=== PATIENT | female | born 1940 | race Caucasian/White ===

== ENCOUNTER 2021-11-03 16:02 | Inpatient (IN) | payer MEDICARE ==
[2021-11-03 17:55] LABS: CKMB 30.1 ng/mL (0-6.6)
[2021-11-03] MEDS ORDERED: Dextrose 50% Abboject 50 ML SYRINGE SLOW IVP PRN (18:01)
[2021-11-03] MEDS ORDERED: Guaifenesin DM 100-10/5 ML UDCUP PO PRN (18:01)
[2021-11-03] MEDS ORDERED: Calcium Carbonate 500 MG ChewTAB PO PRN (18:01)
[2021-11-03] MEDS ORDERED: Morphine 2 MG/ML VIAL SLOW IVP PRN (18:01)
[2021-11-03] MEDS ORDERED: Ondansetron PF 4 MG/2 ML Vial IVP PRN (18:01)
[2021-11-03] MEDS ORDERED: Dextrose 5% in Water 1,000 ML IV PRN (18:01)
[2021-11-03] MEDS ORDERED: Senokot S 8.6-50 MG TAB PO PRN (18:01)
[2021-11-03] MEDS ORDERED: Acetaminophen 325 MG TAB PO PRN (18:01)
[2021-11-03] MEDS ORDERED: Nitroglycerin 0.4 MG TAB (25 Tab Bottle) SL PRN (18:01)
[2021-11-03] MEDS ORDERED: Sodium Chloride 0.9% 1,000 ML IV SCH (18:15)
[2021-11-03] MEDS: Atorvastatin Calcium 40 MG TAB PO SCH (22:06)
[2021-11-03] MEDS: Metoprolol Tartrate 25 MG TAB PO SCH (22:07)
[2021-11-03] MEDS: Melatonin 3 MG TAB PO SCH (22:07)
[2021-11-03] MEDS: Insulin Glargine 30 UNITS/0.3 ML VIAL SC SCH (22:07)
[2021-11-03 22:38] VITALS: BMI 38.1
[2021-11-03] MEDS: Nitroglycerin 2% Ointment 1 INCH/1 GM Packet TOP SCH (23:19)
[2021-11-03] MEDS: Communication Order-Pharmacy FS SCH (23:20)
[2021-11-04 04:31] LABS: #Basophils 0.1 thou/uL (0.0-0.2); #Eosinphils 0.3 thou/uL (0.0-0.7); #Lymphocytes 3.6 thou/uL (1.20-3.40); #Monocytes 1.4 thou/uL (0.11-0.59); #Neutrophils 8.1 thou/uL (1.40-6.50); %Basophils 0.9 % (0.0-1.0); %Lymphocytes 26.7 % (21.0-51.0); %Monocytes 10.3 % (0.0-10.0); %Neutrophils 60.1 % (42.0-75.0); Hemoglobin 13.5 g/dL (12.0-16.0); Mean Corpuscular HGB CONC 33.8 g/dL (32.0-36.0); Mean Corpuscular Hemoglobin 30.4 pg (27.0-31.0); Mean Corpuscular Volume 89.9 fL (78.0-98.0); Mean Platelet Volume 8.8 fL (7.4-10.4); Platelet Count 224 thou/uL (130-400); RBC Distribution Width 12.8 % (11.5-14.5); Red Blood Cell (RBC) Count 4.45 mill/uL (4.20-5.40); White Blood Cell (WBC) Count 13.4 thou/uL (4.8-10.8)
[2021-11-04 04:54] LABS: ALT (SGPT) 22 U/L (8-55); AST (SGOT) 57 U/L (5-34); Albumin 3.1 g/dL (3.4-4.8); Alkaline Phosphatase 49 U/L (40-110); Anion Gap 16 mmol/L (10-20); BUN (Urea Nitrogen) 26 mg/dL (9.8-20.1); Bilirubin, Total 0.6 mg/dL (0.2-1.2); Calc. Creatinine Clearance 68 mL/min (70-130); Carbon Dioxide 21 mmol/L (23-31); Cardiac Risk 4.8 (Less than 4.5); Chloride 106 mmol/L (98-107); Cholesterol 145 mg/dl (< 200 Desired); Estimated GFR 52; Globulin 3.3 g/dL (2.4-3.5); Glucose 170 mg/dL (83-110); HDL Cholesterol 30 mg/dL (>60 Neg Risk); LDL Cholesterol, Calculated 76 mg/dL; Potassium 3.8 mmol/L (3.5-5.1); Protein, Total 6.4 g/dL (5.8-8.1); Sodium 139 mmol/L (136-145); Triglycerides 197 mg/dL (Less than 150)
[2021-11-04] MEDS: Metoprolol Tartrate 25 MG TAB PO SCH ×2 (05:19→21:07)
[2021-11-04] MEDS: Levothyroxine Sodium 25 MCG TAB PO SCH (05:19)
[2021-11-04] MEDS: Nitroglycerin 2% Ointment 1 INCH/1 GM Packet TOP SCH ×3 (06:07→21:17)
[2021-11-04 06:44] LABS: SARS-CoV-2 NAA Rapid Test Not Detected (NotDetected)
[2021-11-04] MEDS: Amlodipine 10 MG TAB PO SCH (07:36)
[2021-11-04] MEDS: Aspirin 325 mg Enteric Coated Tablet PO SCH (07:36)
[2021-11-04] MEDS: Insulin Glargine 30 UNITS/0.3 ML VIAL SC SCH ×2 (07:38→21:06)
[2021-11-04] MEDS: Alogliptin 25 MG TAB PO SCH (07:38)
[2021-11-04] MEDS: Fish Oil 1,000 MG CAP PO SCH (07:38)
[2021-11-04] MEDS ORDERED: Lidocaine 1% PF 5 ML VIAL ONE (07:46)
[2021-11-04] MEDS ORDERED: Midazolam HCl 2 mg/2 ml Vial ONE (08:47)
[2021-11-04] MEDS ORDERED: Fentanyl 100 MCG/2 ML VIAL ONE (08:49)
[2021-11-04] MEDS ORDERED: Losartan 25 MG TAB PO SCH (09:00)
[2021-11-04] MEDS ORDERED: Acetaminophen/Codeine 30-300mg Tablet PO PRN (09:22)
[2021-11-04] MEDS ORDERED: Sodium Chloride 0.9% 200 ML IV PRN (09:22)
[2021-11-04] MEDS ORDERED: Iopamidol 370 76% 100 ML VIAL ONE (09:27)
[2021-11-04] MEDS ORDERED: Sodium Chloride 0.9% 1,000 ML IV SCH (09:30)
[2021-11-04] MEDS ORDERED: Enoxaparin Sodium 100 MG/ML SYRINGE SC SCH (11:00)
[2021-11-04] MEDS: HumaLOG 300 UNITS/3 ML VIAL SC PRN ×3 (11:42→21:17)
[2021-11-04] MEDS ORDERED: hydrALAZINE 20 MG/ML VIAL SLOW IVP SCH (11:45)
[2021-11-04] MEDS: Communication Order-Pharmacy FS SCH (21:01)
[2021-11-04] MEDS: Enoxaparin Sodium 100 MG/ML SYRINGE SC SCH ×2 (21:02→21:27)
[2021-11-04] MEDS: Atorvastatin Calcium 40 MG TAB PO SCH (21:02)
[2021-11-04] MEDS: Melatonin 3 MG TAB PO SCH (21:07)
[2021-11-05 04:56] LABS: Anion Gap 14 mmol/L (10-20); BUN (Urea Nitrogen) 25 mg/dL (9.8-20.1); Calc. Creatinine Clearance 65 mL/min (70-130); Calcium 8.8 mg/dL (7.8-10.44); Carbon Dioxide 22 mmol/L (23-31); Chloride 106 mmol/L (98-107); Estimated GFR 49; Glucose 247 mg/dL (83-110); Potassium 3.6 mmol/L (3.5-5.1); Sodium 138 mmol/L (136-145)
[2021-11-05] MEDS: Nitroglycerin 2% Ointment 1 INCH/1 GM Packet TOP SCH ×3 (05:24→21:35)
[2021-11-05] MEDS: Levothyroxine Sodium 25 MCG TAB PO SCH (05:25)
[2021-11-05] MEDS: HumaLOG 300 UNITS/3 ML VIAL SC PRN ×3 (06:40→16:56)
[2021-11-05] MEDS: Fish Oil 1,000 MG CAP PO SCH (09:13)
[2021-11-05] MEDS: Alogliptin 25 MG TAB PO SCH (09:14)
[2021-11-05] MEDS: Amlodipine 10 MG TAB PO SCH (09:15)
[2021-11-05] MEDS: Metoprolol Tartrate 25 MG TAB PO SCH (09:15)
[2021-11-05] MEDS: Insulin Glargine 30 UNITS/0.3 ML VIAL SC SCH ×2 (09:17→21:35)
[2021-11-05] MEDS: Aspirin 325 mg Enteric Coated Tablet PO SCH (11:05)
[2021-11-05] MEDS: Enoxaparin Sodium 100 MG/ML SYRINGE SC SCH (11:05)
[2021-11-05] MEDS ORDERED: Metoprolol Tartrate 25 MG TAB PO SCH (13:45)
[2021-11-05] MEDS: Sodium Bicarbonate Tab 325 MG TAB PO SCH ×2 (14:01→21:34)
[2021-11-05 14:17] LABS: #Basophils 0.1 thou/uL (0.0-0.2); #Eosinphils 0.3 thou/uL (0.0-0.7); #Lymphocytes 2.6 thou/uL (1.20-3.40); #Monocytes 1.5 thou/uL (0.11-0.59); #Neutrophils 9.4 thou/uL (1.40-6.50); %Basophils 0.4 % (0.0-1.0); %Eosinophils 2.1 % (0.0-10.0); %Lymphocytes 18.8 % (21.0-51.0); %Monocytes 10.9 % (0.0-10.0); %Neutrophils 67.9 % (42.0-75.0); Hemoglobin 13.4 g/dL (12.0-16.0); Mean Corpuscular Hemoglobin 29.9 pg (27.0-31.0); Mean Corpuscular Volume 90.4 fL (78.0-98.0); Mean Platelet Volume 9.2 fL (7.4-10.4); Platelet Count 237 thou/uL (130-400); White Blood Cell (WBC) Count 13.8 thou/uL (4.8-10.8)
[2021-11-05] MEDS: Atorvastatin Calcium 40 MG TAB PO SCH (21:34)
[2021-11-05] MEDS: Metoprolol Tartrate 50 MG TAB PO SCH (21:34)
[2021-11-05] MEDS: Melatonin 3 MG TAB PO SCH (21:34)
[2021-11-06 04:15] LABS: #Basophils 0.1 thou/uL (0.0-0.2); #Eosinphils 0.5 thou/uL (0.0-0.7); #Monocytes 1.5 thou/uL (0.11-0.59); #Neutrophils 6.8 thou/uL (1.40-6.50); %Basophils 0.9 % (0.0-1.0); %Eosinophils 3.9 % (0.0-10.0); %Lymphocytes 25.2 % (21.0-51.0); %Monocytes 12.4 % (0.0-10.0); %Neutrophils 57.6 % (42.0-75.0); Hemoglobin 12.5 g/dL (12.0-16.0); Mean Corpuscular Hemoglobin 30.7 pg (27.0-31.0); Mean Corpuscular Volume 90.2 fL (78.0-98.0); Platelet Count 204 thou/uL (130-400); RBC Distribution Width 12.8 % (11.5-14.5); Red Blood Cell (RBC) Count 4.07 mill/uL (4.20-5.40); White Blood Cell (WBC) Count 11.7 thou/uL (4.8-10.8)
[2021-11-06 04:34] LABS: Anion Gap 15 mmol/L (10-20); BUN (Urea Nitrogen) 38 mg/dL (9.8-20.1); Calc. Creatinine Clearance 48 mL/min (70-130); Calcium 8.6 mg/dL (7.8-10.44); Carbon Dioxide 21 mmol/L (23-31); Chloride 104 mmol/L (98-107); Estimated GFR 34; Glucose 338 mg/dL (83-110); Potassium 3.8 mmol/L (3.5-5.1); Sodium 136 mmol/L (136-145)
[2021-11-06] MEDS: Levothyroxine Sodium 25 MCG TAB PO SCH (05:34)
[2021-11-06] MEDS: Nitroglycerin 2% Ointment 1 INCH/1 GM Packet TOP SCH (05:34)
[2021-11-06] MEDS: HumaLOG 300 UNITS/3 ML VIAL SC PRN ×3 (05:34→17:35)
[2021-11-06] MEDS ORDERED: Sodium Bicarbonate 50 MEQ in Sodium Chloride 0.45% 1,000 ML IV SCH (08:00)
[2021-11-06] MEDS: Sodium Bicarbonate Tab 325 MG TAB PO SCH ×3 (09:21→20:35)
[2021-11-06] MEDS: Amlodipine 10 MG TAB PO SCH (09:22)
[2021-11-06] MEDS: Fish Oil 1,000 MG CAP PO SCH (09:22)
[2021-11-06] MEDS: Alogliptin 25 MG TAB PO SCH (09:22)
[2021-11-06] MEDS: Aspirin 325 mg Enteric Coated Tablet PO SCH (09:22)
[2021-11-06] MEDS: Metoprolol Tartrate 50 MG TAB PO SCH ×2 (09:22→20:35)
[2021-11-06] MEDS: Insulin Glargine 30 UNITS/0.3 ML VIAL SC SCH ×2 (09:23→20:36)
[2021-11-06 15:16] LABS: Bacteria/HPF 4+ HPF (None Seen); Bilirubin Negative (Negative); Blood, Urine 3+ (Negative); Glucose, Urine (Dipstick) 200 mg/dL (Negative); Ketone, Urine Negative (Negative); Leukocyte 500 Leu/uL (Negative); Nitrite Negative (Negative); Protein, Urine (Dipstick) 300 mg/dL (Neg-Trace); RBC/HPF Greater than 50 HPF (0-3); Specific Gravity, Urine 1.021 (1.002-1.036); Squamous Epithelial 0-3 HPF (0-3); Urobilinogen Normal mg/dL (Less than 2); WBC/HPF Greater than 50 HPF (0-3); pH, Urine 6.5 (5.0-9.0)
[2021-11-06 15:28] LABS: Clarity Turbid (Clear)
[2021-11-06 15:45] LABS: Creatinine, Urine 130.4 mg/dL (47-110)
[2021-11-06] MEDS: Melatonin 3 MG TAB PO SCH (20:35)
[2021-11-06] MEDS: Atorvastatin Calcium 40 MG TAB PO SCH (20:35)
[2021-11-07] MEDS: hydrALAZINE 20 MG/ML VIAL SLOW IVP PRN (04:08)
[2021-11-07 04:32] LABS: #Basophils 0.1 thou/uL (0.0-0.2); #Eosinphils 0.7 thou/uL (0.0-0.7); #Lymphocytes 2.7 thou/uL (1.20-3.40); #Monocytes 1.3 thou/uL (0.11-0.59); %Basophils 0.6 % (0.0-1.0); %Eosinophils 5.3 % (0.0-10.0); %Lymphocytes 21.1 % (21.0-51.0); %Monocytes 10.2 % (0.0-10.0); %Neutrophils 62.8 % (42.0-75.0); Hemoglobin 12.8 g/dL (12.0-16.0); Mean Corpuscular HGB CONC 33.8 g/dL (32.0-36.0); Mean Corpuscular Hemoglobin 30.9 pg (27.0-31.0); Mean Corpuscular Volume 91.3 fL (78.0-98.0); Mean Platelet Volume 9.1 fL (7.4-10.4); Platelet Count 224 thou/uL (130-400); RBC Distribution Width 12.7 % (11.5-14.5); Red Blood Cell (RBC) Count 4.15 mill/uL (4.20-5.40); White Blood Cell (WBC) Count 12.8 thou/uL (4.8-10.8)
[2021-11-07 04:56] LABS: Anion Gap 13 mmol/L (10-20); BUN (Urea Nitrogen) 34 mg/dL (9.8-20.1); Calc. Creatinine Clearance 55 mL/min (70-130); Calcium 8.7 mg/dL (7.8-10.44); Carbon Dioxide 25 mmol/L (23-31); Chloride 104 mmol/L (98-107); Estimated GFR 40; Glucose 298 mg/dL (83-110); Magnesium 1.7 mg/dL (1.6-2.6); Sodium 138 mmol/L (136-145)
[2021-11-07] MEDS: HumaLOG 300 UNITS/3 ML VIAL SC PRN (05:33)
[2021-11-07] MEDS: Levothyroxine Sodium 25 MCG TAB PO SCH (05:33)
[2021-11-07] MEDS ORDERED: Furosemide 40 MG/4 ML VIAL SLOW IVP SCH ×2 (06:00→18:30)
[2021-11-07] MEDS: Alogliptin 25 MG TAB PO SCH (09:44)
[2021-11-07] MEDS: Sodium Bicarbonate Tab 325 MG TAB PO SCH ×3 (09:45→21:08)
[2021-11-07] MEDS: Magnesium Oxide 400 MG TAB PO SCH ×2 (09:46→21:08)
[2021-11-07] MEDS: Aspirin 325 mg Enteric Coated Tablet PO SCH ×2 (09:46→09:47)
[2021-11-07] MEDS: Fish Oil 1,000 MG CAP PO SCH (09:46)
[2021-11-07] MEDS: Metoprolol Tartrate 50 MG TAB PO SCH ×2 (09:47→21:08)
[2021-11-07] MEDS: Amlodipine 10 MG TAB PO SCH (09:47)
[2021-11-07] MEDS: Insulin Glargine 30 UNITS/0.3 ML VIAL SC SCH ×2 (09:48→21:07)
[2021-11-07] MEDS: HumaLOG 300 UNITS/3 ML VIAL SC SCH ×2 (11:04→17:37)
[2021-11-07] MEDS ORDERED: Electrolyte Replacement Protocol 1 EACH FS SCH (13:00)
[2021-11-07] MEDS ORDERED: Insulin Glargine 30 UNITS/0.3 ML VIAL SC SCH ×2 (13:00→21:00)
[2021-11-07] MEDS ORDERED: Magnesium 2 GM/50 ML(in water) 2 GM in Premix Bag 1 BAG IVPB SCH (13:30)
[2021-11-07 19:12] LABS: Anion Gap 16 mmol/L (10-20); BUN (Urea Nitrogen) 39 mg/dL (9.8-20.1); Calc. Creatinine Clearance 45 mL/min (70-130); Calcium 8.6 mg/dL (7.8-10.44); Carbon Dioxide 23 mmol/L (23-31); Chloride 101 mmol/L (98-107); Estimated GFR 31; Glucose 426 mg/dL (83-110); Potassium 3.7 mmol/L (3.5-5.1); Sodium 136 mmol/L (136-145)
[2021-11-07 19:44] LABS: CKMB 1.1 ng/mL (0-6.6)
[2021-11-07] MEDS: Atorvastatin Calcium 40 MG TAB PO SCH (21:07)
[2021-11-07] MEDS: Melatonin 3 MG TAB PO SCH (21:08)
[2021-11-07 22:45] LABS: Critical Call Chem Troponin I RESULT DECREASING
[2021-11-08 04:59] LABS: #Basophils 0.1 thou/uL (0.0-0.2); #Eosinphils 0.5 thou/uL (0.0-0.7); #Lymphocytes 2.4 thou/uL (1.20-3.40); #Monocytes 1.2 thou/uL (0.11-0.59); %Basophils 0.6 % (0.0-1.0); %Eosinophils 4.5 % (0.0-10.0); %Lymphocytes 21.2 % (21.0-51.0); %Monocytes 10.8 % (0.0-10.0); %Neutrophils 62.9 % (42.0-75.0); Hemoglobin 11.9 g/dL (12.0-16.0); Mean Corpuscular HGB CONC 34.3 g/dL (32.0-36.0); Mean Corpuscular Hemoglobin 30.9 pg (27.0-31.0); Mean Corpuscular Volume 90.2 fL (78.0-98.0); Mean Platelet Volume 9.2 fL (7.4-10.4); Platelet Count 219 thou/uL (130-400); RBC Distribution Width 12.8 % (11.5-14.5); Red Blood Cell (RBC) Count 3.85 mill/uL (4.20-5.40); White Blood Cell (WBC) Count 11.1 thou/uL (4.8-10.8)
[2021-11-08 05:20] LABS: Anion Gap 16 mmol/L (10-20); BUN (Urea Nitrogen) 33 mg/dL (9.8-20.1); Calc. Creatinine Clearance 61 mL/min (70-130); Calcium 8.7 mg/dL (7.8-10.44); Carbon Dioxide 25 mmol/L (23-31); Chloride 103 mmol/L (98-107); Estimated GFR 45; Glucose 209 mg/dL (83-110); Potassium 3.6 mmol/L (3.5-5.1); Sodium 140 mmol/L (136-145)
[2021-11-08] MEDS: HumaLOG 300 UNITS/3 ML VIAL SC PRN ×2 (05:57→16:10)
[2021-11-08] MEDS: Levothyroxine Sodium 25 MCG TAB PO SCH (05:57)
[2021-11-08] MEDS: hydrALAZINE 20 MG/ML VIAL SLOW IVP PRN (05:57)
[2021-11-08] MEDS: Alogliptin 25 MG TAB PO SCH (08:58)
[2021-11-08] MEDS: Fish Oil 1,000 MG CAP PO SCH (08:59)
[2021-11-08] MEDS: Insulin Glargine 30 UNITS/0.3 ML VIAL SC SCH (09:00)
[2021-11-08] MEDS: Metoprolol Tartrate 50 MG TAB PO SCH ×2 (09:01→21:24)
[2021-11-08] MEDS: NIFEdipine XL 60 MG TAB PO SCH (09:01)
[2021-11-08] MEDS: Magnesium Oxide 400 MG TAB PO SCH ×2 (09:01→21:24)
[2021-11-08] MEDS: Sodium Bicarbonate Tab 325 MG TAB PO SCH ×3 (09:02→21:23)
[2021-11-08] MEDS ORDERED: Furosemide 20 MG TAB PO SCH (09:15)
[2021-11-08] MEDS: Budesonide 0.5 MG/2 ML NEB NEB SCH (19:24)
[2021-11-08] MEDS ORDERED: Insulin Glargine 30 UNITS/0.3 ML VIAL SC SCH (21:00)
[2021-11-08] MEDS: Atorvastatin Calcium 40 MG TAB PO SCH (21:23)
[2021-11-08] MEDS: Melatonin 3 MG TAB PO SCH (21:24)
[2021-11-09 04:39] LABS: #Basophils 0.1 thou/uL (0.0-0.2); #Eosinphils 0.6 thou/uL (0.0-0.7); #Lymphocytes 2.6 thou/uL (1.20-3.40); #Monocytes 1.3 thou/uL (0.11-0.59); #Neutrophils 6.8 thou/uL (1.40-6.50); %Basophils 0.8 % (0.0-1.0); %Monocytes 11.5 % (0.0-10.0); %Neutrophils 59.7 % (42.0-75.0); Hemoglobin 11.8 g/dL (12.0-16.0); Mean Corpuscular HGB CONC 32.7 g/dL (32.0-36.0); Mean Corpuscular Volume 91.7 fL (78.0-98.0); Mean Platelet Volume 9.1 fL (7.4-10.4); Platelet Count 259 thou/uL (130-400); RBC Distribution Width 12.7 % (11.5-14.5); Red Blood Cell (RBC) Count 3.95 mill/uL (4.20-5.40); White Blood Cell (WBC) Count 11.3 thou/uL (4.8-10.8)
[2021-11-09 05:03] LABS: Anion Gap 15 mmol/L (10-20); BUN (Urea Nitrogen) 39 mg/dL (9.8-20.1); Calc. Creatinine Clearance 60 mL/min (70-130); Calcium 8.8 mg/dL (7.8-10.44); Carbon Dioxide 28 mmol/L (23-31); Chloride 104 mmol/L (98-107); Estimated GFR 47; Glucose 110 mg/dL (83-110); Magnesium 1.9 mg/dL (1.6-2.6); Potassium 3.5 mmol/L (3.5-5.1); Sodium 143 mmol/L (136-145)
[2021-11-09] MEDS: Levothyroxine Sodium 25 MCG TAB PO SCH (05:28)
[2021-11-09] MEDS: Budesonide 0.5 MG/2 ML NEB NEB SCH ×2 (07:38→19:17)
[2021-11-09] MEDS ORDERED: Magnesium 2 GM/50 ML(in water) 2 GM in Premix Bag 1 BAG IVPB SCH (08:00)
[2021-11-09] MEDS ORDERED: Potassium Chloride 20 MEQ TAB PO SCH (08:00)
[2021-11-09] MEDS ORDERED: Furosemide 40 MG TAB PO SCH (09:00)
[2021-11-09] MEDS: Alogliptin 25 MG TAB PO SCH (09:17)
[2021-11-09] MEDS: NIFEdipine XL 60 MG TAB PO SCH (09:20)
[2021-11-09] MEDS: Furosemide 20 MG TAB PO SCH (09:21)
[2021-11-09] MEDS: Metoprolol Tartrate 50 MG TAB PO SCH ×2 (09:21→21:43)
[2021-11-09] MEDS: Aspirin 325 mg Enteric Coated Tablet PO SCH (09:21)
[2021-11-09] MEDS: Sodium Bicarbonate Tab 325 MG TAB PO SCH ×2 (09:21→21:42)
[2021-11-09] MEDS: Fish Oil 1,000 MG CAP PO SCH (09:22)
[2021-11-09] MEDS: Magnesium Oxide 400 MG TAB PO SCH ×2 (09:22→21:43)
[2021-11-09] MEDS: Spironolactone 25 MG TAB PO SCH (09:22)
[2021-11-09] MEDS: Insulin Glargine 30 UNITS/0.3 ML VIAL SC SCH ×2 (09:23→21:43)
[2021-11-09] MEDS: HumaLOG 300 UNITS/3 ML VIAL SC PRN (11:51)
[2021-11-09] MEDS: Atorvastatin Calcium 40 MG TAB PO SCH (21:43)
[2021-11-09] MEDS: Melatonin 3 MG TAB PO SCH (21:43)
[2021-11-10 04:18] LABS: #Eosinphils 0.5 thou/uL (0.0-0.7); #Lymphocytes 2.2 thou/uL (1.20-3.40); #Monocytes 1.1 thou/uL (0.11-0.59); #Neutrophils 7.7 thou/uL (1.40-6.50); %Basophils 0.4 % (0.0-1.0); %Eosinophils 4.5 % (0.0-10.0); %Lymphocytes 19.1 % (21.0-51.0); %Monocytes 9.3 % (0.0-10.0); %Neutrophils 66.7 % (42.0-75.0); Hemoglobin 11.9 g/dL (12.0-16.0); Mean Corpuscular HGB CONC 32.6 g/dL (32.0-36.0); Mean Corpuscular Hemoglobin 29.9 pg (27.0-31.0); Mean Corpuscular Volume 91.7 fL (78.0-98.0); Mean Platelet Volume 8.5 fL (7.4-10.4); Platelet Count 262 thou/uL (130-400); RBC Distribution Width 12.9 % (11.5-14.5); Red Blood Cell (RBC) Count 3.97 mill/uL (4.20-5.40); White Blood Cell (WBC) Count 11.6 thou/uL (4.8-10.8)
[2021-11-10 04:38] LABS: Anion Gap 14 mmol/L (10-20); BUN (Urea Nitrogen) 39 mg/dL (9.8-20.1); Calc. Creatinine Clearance 63 mL/min (70-130); Carbon Dioxide 26 mmol/L (23-31); Chloride 107 mmol/L (98-107); Estimated GFR 48; Glucose 69 mg/dL (83-110); Potassium 3.9 mmol/L (3.5-5.1); Sodium 143 mmol/L (136-145)
[2021-11-10] MEDS: Budesonide 0.5 MG/2 ML NEB NEB SCH ×2 (05:33→19:08)
[2021-11-10] MEDS: Levothyroxine Sodium 25 MCG TAB PO SCH (06:10)
[2021-11-10] MEDS: Alogliptin 25 MG TAB PO SCH (09:36)
[2021-11-10] MEDS: Spironolactone 25 MG TAB PO SCH (09:38)
[2021-11-10] MEDS: NIFEdipine XL 90 MG TAB PO SCH (09:38)
[2021-11-10] MEDS: Sodium Bicarbonate Tab 325 MG TAB PO SCH ×2 (09:38→21:07)
[2021-11-10] MEDS ORDERED: Aspirin Chewable 81 MG TAB ONE (09:41)
[2021-11-10] MEDS: Aspirin 325 mg Enteric Coated Tablet PO SCH (09:43)
[2021-11-10] MEDS: Furosemide 20 MG TAB PO SCH (09:44)
[2021-11-10] MEDS: Magnesium Oxide 400 MG TAB PO SCH ×2 (09:44→21:08)
[2021-11-10] MEDS: Clopidogrel Bisulfate 75 MG TAB PO SCH (09:44)
[2021-11-10] MEDS: Fish Oil 1,000 MG CAP PO SCH (09:44)
[2021-11-10] MEDS: Insulin Glargine 30 UNITS/0.3 ML VIAL SC SCH (09:44)
[2021-11-10] MEDS: Metoprolol Tartrate 50 MG TAB PO SCH ×2 (09:44→21:08)
[2021-11-10] MEDS ORDERED: Insulin Glargine 30 UNITS/0.3 ML VIAL SC SCH (21:00)
[2021-11-10] MEDS: Atorvastatin Calcium 40 MG TAB PO SCH (21:07)
[2021-11-10] MEDS: Melatonin 3 MG TAB PO SCH (21:07)
[2021-11-11 04:57] LABS: #Basophils 0.1 thou/uL (0.0-0.2); #Eosinphils 0.6 thou/uL (0.0-0.7); #Lymphocytes 1.9 thou/uL (1.20-3.40); #Monocytes 1.1 thou/uL (0.11-0.59); #Neutrophils 7.9 thou/uL (1.40-6.50); %Basophils 0.6 % (0.0-1.0); %Eosinophils 4.9 % (0.0-10.0); %Lymphocytes 16.8 % (21.0-51.0); %Monocytes 9.4 % (0.0-10.0); %Neutrophils 68.1 % (42.0-75.0); Hemoglobin 11.9 g/dL (12.0-16.0); Mean Corpuscular HGB CONC 32.5 g/dL (32.0-36.0); Mean Corpuscular Volume 92.3 fL (78.0-98.0); Mean Platelet Volume 8.9 fL (7.4-10.4); Platelet Count 286 thou/uL (130-400); Red Blood Cell (RBC) Count 3.96 mill/uL (4.20-5.40); White Blood Cell (WBC) Count 11.5 thou/uL (4.8-10.8)
[2021-11-11 05:08] LABS: Anion Gap 16 mmol/L (10-20); BUN (Urea Nitrogen) 35 mg/dL (9.8-20.1); Calc. Creatinine Clearance 62 mL/min (70-130); Calcium 9.3 mg/dL (7.8-10.44); Carbon Dioxide 26 mmol/L (23-31); Chloride 105 mmol/L (98-107); Estimated GFR 47; Glucose 137 mg/dL (83-110); Sodium 143 mmol/L (136-145)
[2021-11-11] MEDS: Levothyroxine Sodium 25 MCG TAB PO SCH (05:54)
[2021-11-11] MEDS: Budesonide 0.5 MG/2 ML NEB NEB SCH ×2 (07:23→18:41)
[2021-11-11] MEDS ORDERED: Furosemide 40 MG TAB PO SCH (07:30)
[2021-11-11] MEDS ORDERED: Lisinopril 2.5 MG TAB PO SCH (09:00)
[2021-11-11 09:20] LABS: Actual Bicarbonate (HCO3a) 28.5 mEq/L (22-28); Base Excess (BEa) 4.5 mEq/L (-2.0 to +3.0); CO2 Tension 40.5 mmHg (35.0-45.0); Calcium, Ionized (arterial) 1.21 mmol/L (1.12-1.30); Carboxyhemoglobin (COHb) 0.5 gm% (0.0-3.0); Hemoglobin (Hb) 13.6 g/dL (12.0-16.0); O2 Tension (PaO2), arterial 69.3 mmHg (> 60.0); Potassium - ABG Lab 4.17 mmol/L (3.70-5.30); pH, Arterial 7.47 (7.35-7.45)
[2021-11-11 09:22] LABS: ALV-art Gradient 108.235 mmHg (0-20); Puncture Site RRA
[2021-11-11] MEDS: Spironolactone 25 MG TAB PO SCH (10:20)
[2021-11-11] MEDS: Alogliptin 25 MG TAB PO SCH (10:20)
[2021-11-11] MEDS: Clopidogrel Bisulfate 75 MG TAB PO SCH (10:20)
[2021-11-11] MEDS: Fish Oil 1,000 MG CAP PO SCH (10:20)
[2021-11-11] MEDS: Aspirin 325 mg Enteric Coated Tablet PO SCH (10:20)
[2021-11-11] MEDS: Insulin Glargine 30 UNITS/0.3 ML VIAL SC SCH ×2 (10:20→20:51)
[2021-11-11] MEDS: Metoprolol Tartrate 50 MG TAB PO SCH ×2 (10:21→20:50)
[2021-11-11] MEDS: Sodium Bicarbonate Tab 325 MG TAB PO SCH ×2 (10:21→20:50)
[2021-11-11] MEDS: NIFEdipine XL 90 MG TAB PO SCH (10:21)
[2021-11-11] MEDS: Magnesium Oxide 400 MG TAB PO SCH ×2 (10:21→20:50)
[2021-11-11] MEDS: Furosemide 40 MG/4 ML VIAL SLOW IVP SCH (14:02)
[2021-11-11] MEDS: HumaLOG 300 UNITS/3 ML VIAL SC PRN (18:57)
[2021-11-11] MEDS: Atorvastatin Calcium 40 MG TAB PO SCH (20:50)
[2021-11-11] MEDS: Melatonin 3 MG TAB PO SCH (20:50)
[2021-11-11] MEDS: Icosapent Ethyl 1 GM CAPSULE PO SCH (20:57)
[2021-11-12 05:12] LABS: Anion Gap 14 mmol/L (10-20); BUN (Urea Nitrogen) 34 mg/dL (9.8-20.1); Calc. Creatinine Clearance 66 mL/min (70-130); Calcium 9.2 mg/dL (7.8-10.44); Carbon Dioxide 28 mmol/L (23-31); Chloride 103 mmol/L (98-107); Estimated GFR 51; Glucose 78 mg/dL (83-110); Sodium 141 mmol/L (136-145)
[2021-11-12] MEDS: Levothyroxine Sodium 25 MCG TAB PO SCH (06:07)
[2021-11-12] MEDS: Furosemide 40 MG/4 ML VIAL SLOW IVP SCH ×2 (06:07→15:13)
[2021-11-12] MEDS: Budesonide 0.5 MG/2 ML NEB NEB SCH ×2 (07:07→18:44)
[2021-11-12] MEDS: Sodium Bicarbonate Tab 325 MG TAB PO SCH ×2 (09:20→20:21)
[2021-11-12] MEDS: NIFEdipine XL 90 MG TAB PO SCH (09:20)
[2021-11-12] MEDS: Spironolactone 25 MG TAB PO SCH (09:21)
[2021-11-12] MEDS: Alogliptin 25 MG TAB PO SCH (09:22)
[2021-11-12] MEDS: Lisinopril 10 MG TAB PO SCH (09:22)
[2021-11-12] MEDS: Clopidogrel Bisulfate 75 MG TAB PO SCH (09:22)
[2021-11-12] MEDS: Metoprolol Tartrate 50 MG TAB PO SCH ×2 (09:23→20:21)
[2021-11-12] MEDS: Magnesium Oxide 400 MG TAB PO SCH ×2 (09:23→20:21)
[2021-11-12] MEDS: Icosapent Ethyl 1 GM CAPSULE PO SCH ×2 (09:33→20:25)
[2021-11-12] MEDS: Empagliflozin 10 MG TAB PO SCH (09:34)
[2021-11-12] MEDS: Insulin Glargine 30 UNITS/0.3 ML VIAL SC SCH ×2 (09:34→20:20)
[2021-11-12] MEDS: Aspirin 81 mg Enteric Coated Tablet PO SCH (10:11)
[2021-11-12] MEDS: Aspirin 325 mg Enteric Coated Tablet PO SCH (10:19)
[2021-11-12] MEDS: HumaLOG 300 UNITS/3 ML VIAL SC PRN ×2 (17:25→22:29)
[2021-11-12] MEDS: Melatonin 3 MG TAB PO SCH (20:21)
[2021-11-12] MEDS: Atorvastatin Calcium 40 MG TAB PO SCH (20:21)
[2021-11-13 05:15] LABS: #Basophils 0.1 thou/uL (0.0-0.2); #Eosinphils 0.6 thou/uL (0.0-0.7); #Lymphocytes 3.2 thou/uL (1.20-3.40); #Monocytes 1.1 thou/uL (0.11-0.59); #Neutrophils 7.8 thou/uL (1.40-6.50); %Basophils 0.5 % (0.0-1.0); %Eosinophils 4.9 % (0.0-10.0); %Lymphocytes 24.7 % (21.0-51.0); %Monocytes 8.6 % (0.0-10.0); %Neutrophils 61.2 % (42.0-75.0); Hemoglobin 12.9 g/dL (12.0-16.0); Mean Corpuscular HGB CONC 33.5 g/dL (32.0-36.0); Mean Corpuscular Hemoglobin 30.5 pg (27.0-31.0); Mean Corpuscular Volume 91.1 fL (78.0-98.0); Mean Platelet Volume 8.2 fL (7.4-10.4); Platelet Count 321 thou/uL (130-400); RBC Distribution Width 12.7 % (11.5-14.5); Red Blood Cell (RBC) Count 4.24 mill/uL (4.20-5.40); White Blood Cell (WBC) Count 12.7 thou/uL (4.8-10.8)
[2021-11-13 05:32] LABS: ALT (SGPT) 16 U/L (8-55); AST (SGOT) 16 U/L (5-34); Alkaline Phosphatase 52 U/L (40-110); Anion Gap 17 mmol/L (10-20); BUN (Urea Nitrogen) 34 mg/dL (9.8-20.1); Bilirubin, Total 0.5 mg/dL (0.2-1.2); Calc. Creatinine Clearance 57 mL/min (70-130); Calcium 9.5 mg/dL (7.8-10.44); Carbon Dioxide 29 mmol/L (23-31); Chloride 100 mmol/L (98-107); Estimated GFR 43; Globulin 3.4 g/dL (2.4-3.5); Glucose 90 mg/dL (83-110); Potassium 4.1 mmol/L (3.5-5.1); Protein, Total 6.4 g/dL (5.8-8.1); Sodium 142 mmol/L (136-145)
[2021-11-13] MEDS: Levothyroxine Sodium 25 MCG TAB PO SCH (05:53)
[2021-11-13] MEDS: Furosemide 40 MG/4 ML VIAL SLOW IVP SCH ×2 (05:54→14:45)
[2021-11-13] MEDS: Budesonide 0.5 MG/2 ML NEB NEB SCH ×2 (06:58→18:42)
[2021-11-13] MEDS: Spironolactone 25 MG TAB PO SCH (09:55)
[2021-11-13] MEDS: Magnesium Oxide 400 MG TAB PO SCH ×2 (09:56→20:58)
[2021-11-13] MEDS: Lisinopril 10 MG TAB PO SCH (09:56)
[2021-11-13] MEDS: Sodium Bicarbonate Tab 325 MG TAB PO SCH ×2 (09:56→21:06)
[2021-11-13] MEDS: Aspirin 81 mg Enteric Coated Tablet PO SCH (09:56)
[2021-11-13] MEDS: Clopidogrel Bisulfate 75 MG TAB PO SCH (09:56)
[2021-11-13] MEDS: NIFEdipine XL 90 MG TAB PO SCH (09:56)
[2021-11-13] MEDS: Empagliflozin 10 MG TAB PO SCH (09:56)
[2021-11-13] MEDS: Metoprolol Tartrate 50 MG TAB PO SCH ×2 (09:57→20:58)
[2021-11-13] MEDS: Icosapent Ethyl 1 GM CAPSULE PO SCH ×2 (09:57→20:57)
[2021-11-13] MEDS: Insulin Glargine 30 UNITS/0.3 ML VIAL SC SCH ×2 (09:57→20:58)
[2021-11-13] MEDS: Alogliptin 25 MG TAB PO SCH (10:54)
[2021-11-13] MEDS: HumaLOG 300 UNITS/3 ML VIAL SC PRN (17:25)
[2021-11-13] MEDS: Atorvastatin Calcium 40 MG TAB PO SCH (20:57)
[2021-11-13] MEDS: Melatonin 3 MG TAB PO SCH (20:58)
[2021-11-14 04:31] LABS: Anion Gap 18 mmol/L (10-20); BUN (Urea Nitrogen) 43 mg/dL (9.8-20.1); Calc. Creatinine Clearance 41 mL/min (70-130); Calcium 9.3 mg/dL (7.8-10.44); Carbon Dioxide 30 mmol/L (23-31); Chloride 97 mmol/L (98-107); Estimated GFR 29; Glucose 80 mg/dL (83-110); Potassium 3.7 mmol/L (3.5-5.1); Sodium 141 mmol/L (136-145)
[2021-11-14] MEDS: Levothyroxine Sodium 25 MCG TAB PO SCH (06:07)
[2021-11-14] MEDS: Furosemide 40 MG/4 ML VIAL SLOW IVP SCH (06:07)
[2021-11-14] MEDS: Budesonide 0.5 MG/2 ML NEB NEB SCH ×2 (07:16→19:11)
[2021-11-14] MEDS: Alogliptin 25 MG TAB PO SCH (09:48)
[2021-11-14] MEDS: Icosapent Ethyl 1 GM CAPSULE PO SCH ×2 (09:49→21:33)
[2021-11-14] MEDS: Insulin Glargine 30 UNITS/0.3 ML VIAL SC SCH ×2 (09:49→21:33)
[2021-11-14] MEDS: Metoprolol Tartrate 50 MG TAB PO SCH ×2 (09:50→21:32)
[2021-11-14] MEDS: Spironolactone 25 MG TAB PO SCH (09:50)
[2021-11-14] MEDS: Sodium Bicarbonate Tab 325 MG TAB PO SCH ×2 (09:51→21:33)
[2021-11-14] MEDS: Clopidogrel Bisulfate 75 MG TAB PO SCH (09:51)
[2021-11-14] MEDS: Magnesium Oxide 400 MG TAB PO SCH ×2 (09:51→21:33)
[2021-11-14] MEDS: Empagliflozin 10 MG TAB PO SCH (09:51)
[2021-11-14] MEDS: Aspirin 81 mg Enteric Coated Tablet PO SCH (09:51)
[2021-11-14] MEDS: NIFEdipine XL 60 MG TAB PO SCH (09:52)
[2021-11-14] MEDS: HumaLOG 300 UNITS/3 ML VIAL SC PRN ×2 (11:40→17:56)
[2021-11-14] MEDS ORDERED: Sodium Chloride 0.9% 250 ML IV SCH (17:45)
[2021-11-14] MEDS: Senokot S 8.6-50 MG TAB PO SCH (21:32)
[2021-11-14] MEDS: Melatonin 3 MG TAB PO SCH (21:33)
[2021-11-14] MEDS: Atorvastatin Calcium 40 MG TAB PO SCH (21:33)
[2021-11-15 05:13] LABS: Anion Gap 16 mmol/L (10-20); BUN (Urea Nitrogen) 46 mg/dL (9.8-20.1); Calc. Creatinine Clearance 37 mL/min (70-130); Calcium 9.5 mg/dL (7.8-10.44); Carbon Dioxide 30 mmol/L (23-31); Chloride 95 mmol/L (98-107); Estimated GFR 28; Glucose 101 mg/dL (83-110); Magnesium 2.1 mg/dL (1.6-2.6); Potassium 3.8 mmol/L (3.5-5.1); Sodium 137 mmol/L (136-145)
[2021-11-15] MEDS: Levothyroxine Sodium 25 MCG TAB PO SCH (05:20)
[2021-11-15] MEDS: Budesonide 0.5 MG/2 ML NEB NEB SCH ×2 (05:36→18:46)
[2021-11-15] MEDS: Spironolactone 25 MG TAB PO SCH (08:54)
[2021-11-15] MEDS: Metoprolol Tartrate 50 MG TAB PO SCH ×2 (08:55→20:54)
[2021-11-15] MEDS: Clopidogrel Bisulfate 75 MG TAB PO SCH (08:58)
[2021-11-15] MEDS: Sodium Bicarbonate Tab 325 MG TAB PO SCH ×2 (08:58→20:52)
[2021-11-15] MEDS: Aspirin 81 mg Enteric Coated Tablet PO SCH (08:58)
[2021-11-15] MEDS: Senokot S 8.6-50 MG TAB PO SCH ×2 (08:58→20:53)
[2021-11-15] MEDS: NIFEdipine XL 60 MG TAB PO SCH (08:59)
[2021-11-15] MEDS: Empagliflozin 10 MG TAB PO SCH (08:59)
[2021-11-15] MEDS: Icosapent Ethyl 1 GM CAPSULE PO SCH ×2 (08:59→20:56)
[2021-11-15] MEDS: Alogliptin 25 MG TAB PO SCH (08:59)
[2021-11-15] MEDS: Insulin Glargine 30 UNITS/0.3 ML VIAL SC SCH ×2 (09:00→20:54)
[2021-11-15] MEDS: Magnesium Oxide 400 MG TAB PO SCH ×2 (09:07→20:53)
[2021-11-15] MEDS: HumaLOG 300 UNITS/3 ML VIAL SC PRN (12:08)
[2021-11-15] MEDS ORDERED: Sodium Chloride 0.9% 500 ML IV SCH (12:30)
[2021-11-15] MEDS ORDERED: Heparin 5,000 UNITS/ML VIAL SC SCH ×2 (13:15→21:00)
[2021-11-15] MEDS: Melatonin 3 MG TAB PO SCH (20:52)
[2021-11-15] MEDS: Folic Acid 1 MG TAB PO SCH (20:53)
[2021-11-15] MEDS: Cyanocobalamin (Vitamin B-12) 1,000 MCG TAB PO SCH (20:53)
[2021-11-15] MEDS: Atorvastatin Calcium 40 MG TAB PO SCH (20:53)
[2021-11-16 04:39] LABS: #Basophils 0.1 thou/uL (0.0-0.2); #Eosinphils 0.7 thou/uL (0.0-0.7); #Lymphocytes 2.5 thou/uL (1.20-3.40); #Monocytes 1.1 thou/uL (0.11-0.59); #Neutrophils 6.5 thou/uL (1.40-6.50); %Basophils 0.9 % (0.0-1.0); %Eosinophils 6.7 % (0.0-10.0); %Lymphocytes 22.8 % (21.0-51.0); %Monocytes 10.5 % (0.0-10.0); %Neutrophils 59.2 % (42.0-75.0); Hemoglobin 12.9 g/dL (12.0-16.0); Mean Corpuscular HGB CONC 32.9 g/dL (32.0-36.0); Mean Corpuscular Hemoglobin 29.9 pg (27.0-31.0); Mean Corpuscular Volume 90.7 fL (78.0-98.0); Mean Platelet Volume 8.2 fL (7.4-10.4); Platelet Count 317 thou/uL (130-400); RBC Distribution Width 12.5 % (11.5-14.5); Red Blood Cell (RBC) Count 4.32 mill/uL (4.20-5.40); White Blood Cell (WBC) Count 10.9 thou/uL (4.8-10.8)
[2021-11-16 05:01] LABS: Anion Gap 16 mmol/L (10-20); BUN (Urea Nitrogen) 43 mg/dL (9.8-20.1); Calc. Creatinine Clearance 40 mL/min (70-130); Carbon Dioxide 27 mmol/L (23-31); Chloride 99 mmol/L (98-107); Estimated GFR 30; Glucose 174 mg/dL (83-110); Potassium 4.1 mmol/L (3.5-5.1); Sodium 138 mmol/L (136-145)
[2021-11-16] MEDS: Levothyroxine Sodium 25 MCG TAB PO SCH (05:12)
[2021-11-16] MEDS: Budesonide 0.5 MG/2 ML NEB NEB SCH ×2 (06:39→19:33)
[2021-11-16] MEDS: Alogliptin 6.25 MG TAB PO SCH (08:45)
[2021-11-16] MEDS: Icosapent Ethyl 1 GM CAPSULE PO SCH (08:45)
[2021-11-16] MEDS: Sodium Bicarbonate Tab 325 MG TAB PO SCH ×2 (08:45→21:03)
[2021-11-16] MEDS: Aspirin 81 mg Enteric Coated Tablet PO SCH (08:46)
[2021-11-16] MEDS: NIFEdipine XL 60 MG TAB PO SCH ×2 (08:46→21:03)
[2021-11-16] MEDS: Magnesium Oxide 400 MG TAB PO SCH ×2 (08:46→21:05)
[2021-11-16] MEDS: Senokot S 8.6-50 MG TAB PO SCH ×2 (08:46→21:01)
[2021-11-16] MEDS: Insulin Glargine 30 UNITS/0.3 ML VIAL SC SCH ×2 (08:47→21:03)
[2021-11-16] MEDS: Spironolactone 25 MG TAB PO SCH (08:47)
[2021-11-16] MEDS: Empagliflozin 10 MG TAB PO SCH (08:47)
[2021-11-16] MEDS: Metoprolol Tartrate 50 MG TAB PO SCH ×2 (08:47→21:01)
[2021-11-16] MEDS: Clopidogrel Bisulfate 75 MG TAB PO SCH (08:47)
[2021-11-16] MEDS: HumaLOG 300 UNITS/3 ML VIAL SC PRN (12:00)
[2021-11-16] MEDS: Cyanocobalamin (Vitamin B-12) 1,000 MCG TAB PO SCH (21:01)
[2021-11-16] MEDS: Melatonin 3 MG TAB PO SCH (21:03)
[2021-11-16] MEDS: Folic Acid 1 MG TAB PO SCH (21:03)
[2021-11-16] MEDS: Atorvastatin Calcium 40 MG TAB PO SCH (21:03)
[2021-11-17] MEDS: Icosapent Ethyl 1 GM CAPSULE PO SCH ×2 (01:56→08:58)
[2021-11-17 04:49] LABS: Anion Gap 15 mmol/L (10-20); BUN (Urea Nitrogen) 39 mg/dL (9.8-20.1); Calc. Creatinine Clearance 43 mL/min (70-130); Calcium 9.4 mg/dL (7.8-10.44); Carbon Dioxide 25 mmol/L (23-31); Chloride 102 mmol/L (98-107); Estimated GFR 32; Glucose 175 mg/dL (83-110); Potassium 4.2 mmol/L (3.5-5.1); Sodium 138 mmol/L (136-145)
[2021-11-17] MEDS: Levothyroxine Sodium 25 MCG TAB PO SCH (06:04)
[2021-11-17] MEDS: HumaLOG 300 UNITS/3 ML VIAL SC PRN ×2 (06:05→12:14)
[2021-11-17] MEDS: Budesonide 0.5 MG/2 ML NEB NEB SCH (07:23)
[2021-11-17] MEDS: Senokot S 8.6-50 MG TAB PO SCH (08:57)
[2021-11-17] MEDS: Spironolactone 25 MG TAB PO SCH (08:57)
[2021-11-17] MEDS: Aspirin 81 mg Enteric Coated Tablet PO SCH (08:58)
[2021-11-17] MEDS: Alogliptin 6.25 MG TAB PO SCH (08:58)
[2021-11-17] MEDS: Empagliflozin 10 MG TAB PO SCH (08:58)
[2021-11-17] MEDS: Magnesium Oxide 400 MG TAB PO SCH (08:59)
[2021-11-17] MEDS: Metoprolol Tartrate 50 MG TAB PO SCH (08:59)
[2021-11-17] MEDS: Insulin Glargine 30 UNITS/0.3 ML VIAL SC SCH (08:59)
[2021-11-17] MEDS: NIFEdipine XL 60 MG TAB PO SCH (08:59)
[2021-11-17] MEDS: Sodium Bicarbonate Tab 325 MG TAB PO SCH (09:00)
[2021-11-17 13:33] VITALS: BP 139/64; TEMP 97
== END 2021-11-17 15:00 | disposition home health service (06) | DRG 280 ==
LOC: ERS 16:02 → 2NO 17:38
PROVIDERS: ADMIT Internal Medicine; ATTEND Internal Medicine
PROC: 4A023N7 Measurement of Cardiac Sampling and Pressure, Left Heart, Percutaneous Approach (ICD-10-PCS; principal; 2021-11-03)
PROC: B2151ZZ Fluoroscopy of Left Heart using Low Osmolar Contrast (ICD-10-PCS; 2021-11-03)
PROC: B2111ZZ Fluoroscopy of Multiple Coronary Arteries using Low Osmolar Contrast (ICD-10-PCS; 2021-11-03)
DX: I21.4 Non-ST elevation (NSTEMI) myocardial infarction (principal); I50.33 Acute on chronic diastolic (congestive) heart failure; J96.01 Acute respiratory failure with hypoxia; N17.9 Acute kidney failure, unspecified; D62 Acute posthemorrhagic anemia; J98.11 Atelectasis; I13.0 Hypertensive heart and chronic kidney disease with heart failure and stage 1 through stage 4 chronic kidney disease, or unspecified chronic kidney disease; Z20.822 Contact with and (suspected) exposure to COVID-19; I25.10 Atherosclerotic heart disease of native coronary artery without angina pectoris; N18.30 Chronic kidney disease, stage 3 unspecified; E03.9 Hypothyroidism, unspecified; E11.22 Type 2 diabetes mellitus with diabetic chronic kidney disease; E78.5 Hyperlipidemia, unspecified; N20.0 Calculus of kidney; Z60.2 Problems related to living alone; E86.9 Volume depletion, unspecified; I08.1 Rheumatic disorders of both mitral and tricuspid valves; T46.5X5A Adverse effect of other antihypertensive drugs, initial encounter; I16.0 Hypertensive urgency; E83.42 Hypomagnesemia; R31.0 Gross hematuria; Z91.09 Other allergy status, other than to drugs and biological substances; Z79.899 Other long term (current) drug therapy; Z79.82 Long term (current) use of aspirin; Z79.890 Hormone replacement therapy; Z79.4 Long term (current) use of insulin; Z86.16 Personal history of COVID-19; Z90.89 Acquired absence of other organs; Z82.49 Family history of ischemic heart disease and other diseases of the circulatory system; Z86.010 Personal history of colon polyps; E66.9 Obesity, unspecified; Z68.35 Body mass index [BMI] 35.0-35.9, adult; Z79.51 Long term (current) use of inhaled steroids; Z79.84 Long term (current) use of oral hypoglycemic drugs
CPT/HCPCS: 36415; 36416; 36600; 71045; 74176; 80048; 80053; 80061; 81001; 82553; 82570; 82805; 83735; 83880; 84156; 84300; 84484; 85025; 93005; 93010; 93306; 93458; 93798; 94640; 99152; C1769; J0360; J1650; J1815; J1940; J2250; J3010; J3475; J7030; J7050; J7620; J7626; Q9967; U0002; U0003; U0005

== ENCOUNTER 2022-04-05 16:44 | Inpatient (IN) | payer MEDICARE ==
[2022-04-05 18:03] LABS: Hemoglobin 12.2 g/dL (12.0-16.0); Mean Corpuscular HGB CONC 32.2 g/dL (32.0-36.0); Mean Corpuscular Hemoglobin 29.3 pg (27.0-31.0); Mean Platelet Volume 7.7 fL (7.4-10.4); Platelet Count 349 10x3/uL (130-400); RBC Distribution Width 13.3 % (11.5-14.5); Red Blood Cell (RBC) Count 4.15 mill/uL (4.20-5.40); White Blood Cell (WBC) Count 22.3 10x3/uL (4.8-10.8)
[2022-04-05 18:26] LABS: ALT (SGPT) 45 U/L (8-55); AST (SGOT) 88 U/L (5-34); Albumin 2.9 g/dL (3.4-4.8); Alkaline Phosphatase 100 U/L (40-110); Anion Gap 18 mmol/L (10-20); BUN (Urea Nitrogen) 56 mg/dL (9.8-20.1); Band 11 % (5-11); Bilirubin, Total 0.4 mg/dL (0.2-1.2); Calc. Creatinine Clearance 0 mL/min (70-130); Calcium 8.3 mg/dL (7.8-10.44); Carbon Dioxide 25 mmol/L (23-31); Chloride 100 mmol/L (98-107); Estimated GFR 21; Globulin 3.4 g/dL (2.4-3.5); Glucose 104 mg/dL (83-110); Lymphocytes 10 % (21-51); MDiff Complete? YES; Monocytes 7 % (0-10); Neutrophil 71 % (42-75); Platelet Morphology Comment Appears Adequate; Potassium 4.5 mmol/L (3.5-5.1); Protein, Total 6.3 g/dL (5.8-8.1); RBC Morphology Normal; Reactive Lymphocytes 1 % (0-10); Sodium 138 mmol/L (136-145)
[2022-04-05] MEDS ORDERED: Dextrose 50% Abboject 50 ML SYRINGE SLOW IVP PRN (18:29)
[2022-04-05] MEDS ORDERED: Dextrose 5% in Water 1,000 ML IV PRN (18:29)
[2022-04-05 18:53] LABS: CKMB 26.1 ng/mL (0-6.6)
[2022-04-05] MEDS: Atorvastatin Calcium 40 MG TAB PO SCH (23:01)
[2022-04-05] MEDS: NIFEdipine XL 60 MG TAB PO SCH (23:01)
[2022-04-05] MEDS: Sodium Chloride 0.9% 1,000 ML IV SCH (23:02)
[2022-04-05] MEDS: Metoprolol Tartrate 50 MG TAB PO SCH (23:02)
[2022-04-05] MEDS: Insulin Glargine 30 UNITS/0.3 ML VIAL SC SCH (23:02)
[2022-04-05] MEDS: HumaLOG 300 UNITS/3 ML VIAL SC PRN (23:05)
[2022-04-05 23:49] VITALS: BMI 32.8
[2022-04-06 00:34] LABS: Critical Call Chem Troponin I RESULT DECREASING; Troponin I 11.812 ng/mL (< 0.028)
[2022-04-06] MEDS: Sodium Chloride 0.9% 1,000 ML IV SCH ×2 (04:42→14:37)
[2022-04-06 04:59] LABS: Hemoglobin 11.5 g/dL (12.0-16.0); Mean Corpuscular HGB CONC 31.9 g/dL (32.0-36.0); Mean Corpuscular Hemoglobin 29.1 pg (27.0-31.0); Mean Corpuscular Volume 91.2 fl (78.0-98.0); Mean Platelet Volume 7.9 fL (7.4-10.4); Platelet Count 352 10x3/uL (130-400); RBC Distribution Width 13.4 % (11.5-14.5); Red Blood Cell (RBC) Count 3.96 mill/uL (4.20-5.40)
[2022-04-06 05:13] LABS: Anion Gap 18 mmol/L (10-20); BUN (Urea Nitrogen) 63 mg/dL (9.8-20.1); Calc. Creatinine Clearance 29 mL/min (70-130); Calcium 8.8 mg/dL (7.8-10.44); Carbon Dioxide 25 mmol/L (23-31); Chloride 97 mmol/L (98-107); Estimated GFR 22; Glucose 273 mg/dL (83-110); Potassium 4.2 mmol/L (3.5-5.1); Sodium 136 mmol/L (136-145)
[2022-04-06 05:34] LABS: Band 6 % (5-11); Eosinophils 2 % (0-10); Lymphocytes 8 % (21-51); MDiff Complete? YES; Monocytes 9 % (0-10); Myelocyte 1 % (0-0); Neutrophil 74 % (42-75)
[2022-04-06] MEDS: cefTRIAXone\\ROCEPHIN 2 GM in Sodium Chloride 0.9% 100 ML IVPB SCH (06:04)
[2022-04-06] MEDS ORDERED: FLU VACC QS2022-23(65YR UP)/PF 240 MCG/0.7 ML SYRINGE IM ONE (09:00)
[2022-04-06] MEDS ORDERED: Dexamethasone 10 MG in Sodium Chloride 0.9% 50 ML IVPB SCH (09:00)
[2022-04-06] MEDS: Dexamethasone 4 mg/ml Vial SLOW IVP SCH (09:06)
[2022-04-06] MEDS: Metoprolol Tartrate 50 MG TAB PO SCH ×2 (09:07→20:59)
[2022-04-06] MEDS: Azithromycin 500 MG in Sodium Chloride 0.9% 250 ML 250 ML IVPB SCH (09:07)
[2022-04-06] MEDS: NIFEdipine XL 60 MG TAB PO SCH ×2 (09:07→20:59)
[2022-04-06] MEDS: Empagliflozin 10 MG TAB PO SCH (09:07)
[2022-04-06 10:32] LABS: Troponin I 9.179 ng/mL (< 0.028)
[2022-04-06] MEDS: HumaLOG 300 UNITS/3 ML VIAL SC PRN ×2 (19:09→21:00)
[2022-04-06] MEDS: Atorvastatin Calcium 40 MG TAB PO SCH (20:59)
[2022-04-06] MEDS: Insulin Glargine 30 UNITS/0.3 ML VIAL SC SCH (21:00)
[2022-04-07 04:58] LABS: Hemoglobin 12.1 g/dL (12.0-16.0); Mean Corpuscular HGB CONC 32.1 g/dL (32.0-36.0); Mean Corpuscular Hemoglobin 29.3 pg (27.0-31.0); Mean Corpuscular Volume 91.1 fl (78.0-98.0); Mean Platelet Volume 7.9 fL (7.4-10.4); Platelet Count 384 10x3/uL (130-400); RBC Distribution Width 13.4 % (11.5-14.5); Red Blood Cell (RBC) Count 4.15 mill/uL (4.20-5.40); White Blood Cell (WBC) Count 20.3 10x3/uL (4.8-10.8)
[2022-04-07 05:07] LABS: ALT (SGPT) 53 U/L (8-55); AST (SGOT) 50 U/L (5-34); Alkaline Phosphatase 107 U/L (40-110); Anion Gap 15 mmol/L (10-20); BUN (Urea Nitrogen) 65 mg/dL (9.8-20.1); Bilirubin, Total 0.5 mg/dL (0.2-1.2); CRP (Inflammatory) 14.56 mg/dL (= or < 0.5); Calc. Creatinine Clearance 37 mL/min (70-130); Calcium 8.8 mg/dL (7.8-10.44); Carbon Dioxide 24 mmol/L (23-31); Chloride 105 mmol/L (98-107); Estimated GFR 30; Glucose 253 mg/dL (83-110); Magnesium 3.3 mg/dL (1.6-2.6); Potassium 4.3 mmol/L (3.5-5.1); Sodium 140 mmol/L (136-145)
[2022-04-07] MEDS: Azithromycin 500 MG in Sodium Chloride 0.9% 250 ML 250 ML IVPB SCH ×2 (05:26→10:29)
[2022-04-07] MEDS ORDERED: Albuterol 200 PUFF (6.7GM INHALER) INH PRN (05:46)
[2022-04-07] MEDS ORDERED: Furosemide 40 MG/4 ML VIAL ONE (05:49)
[2022-04-07 05:50] LABS: Band 10 % (5-11); Eosinophils 1 % (0-10); Lymphocytes 14 % (21-51); MDiff Complete? YES; Monocytes 2 % (0-10); Neutrophil 73 % (42-75)
[2022-04-07] MEDS: Albuterol 200 PUFF (6.7GM INHALER) INH SCH ×6 (05:57→21:34)
[2022-04-07] MEDS ORDERED: Furosemide 40 MG/4 ML VIAL SLOW IVP SCH (06:00)
[2022-04-07] MEDS: Sodium Chloride 0.9% 1,000 ML IV SCH (06:24)
[2022-04-07] MEDS: cefTRIAXone\\ROCEPHIN 2 GM in Sodium Chloride 0.9% 100 ML IVPB SCH (06:25)
[2022-04-07] MEDS: Empagliflozin 10 MG TAB PO SCH (10:16)
[2022-04-07] MEDS: Aspirin 81 mg Enteric Coated Tablet PO SCH (10:16)
[2022-04-07] MEDS: Dexamethasone 4 mg/ml Vial SLOW IVP SCH (10:16)
[2022-04-07] MEDS: Clopidogrel Bisulfate 75 MG TAB PO SCH (10:16)
[2022-04-07] MEDS: NIFEdipine XL 60 MG TAB PO SCH ×2 (10:17→21:31)
[2022-04-07] MEDS: Metoprolol Tartrate 50 MG TAB PO SCH ×2 (10:17→21:31)
[2022-04-07] MEDS: HumaLOG 300 UNITS/3 ML VIAL SC PRN ×2 (12:34→18:13)
[2022-04-07] MEDS: Furosemide 20 MG/2 ML VIAL SLOW IVP SCH (18:13)
[2022-04-07] MEDS: Atorvastatin Calcium 40 MG TAB PO SCH (21:31)
[2022-04-07] MEDS: Insulin Glargine 30 UNITS/0.3 ML VIAL SC SCH (21:32)
[2022-04-08] MEDS: Albuterol 200 PUFF (6.7GM INHALER) INH SCH ×8 (05:35→20:25)
[2022-04-08] MEDS: cefTRIAXone\\ROCEPHIN 2 GM in Sodium Chloride 0.9% 100 ML IVPB SCH (07:05)
[2022-04-08] MEDS: Furosemide 20 MG/2 ML VIAL SLOW IVP SCH ×2 (07:05→16:36)
[2022-04-08] MEDS: HumaLOG 300 UNITS/3 ML VIAL SC PRN ×4 (07:05→20:27)
[2022-04-08 07:34] LABS: Anion Gap 19 mmol/L (10-20); BUN (Urea Nitrogen) 61 mg/dL (9.8-20.1); CRP (Inflammatory) 11.02 mg/dL (= or < 0.5); Calc. Creatinine Clearance 42 mL/min (70-130); Calcium 9.1 mg/dL (7.8-10.44); Carbon Dioxide 22 mmol/L (23-31); Chloride 108 mmol/L (98-107); Estimated GFR 35; Glucose 272 mg/dL (83-110); Sodium 145 mmol/L (136-145)
[2022-04-08 08:23] LABS: Band 10 % (5-11); Hemoglobin 10.9 g/dL (12.0-16.0); Lymphocytes 7 % (21-51); MDiff Complete? YES; Mean Corpuscular HGB CONC 32.3 g/dL (32.0-36.0); Mean Corpuscular Hemoglobin 29.4 pg (27.0-31.0); Mean Platelet Volume 7.7 fL (7.4-10.4); Metamyelocyte 1 % (0-0); Monocytes 7 % (0-10); Neutrophil 75 % (42-75); Platelet Count 394 10x3/uL (130-400); Platelet Morphology Comment Appears Adequate; RBC Distribution Width 13.4 % (11.5-14.5); RBC Morphology Normal; White Blood Cell (WBC) Count 18.4 10x3/uL (4.8-10.8)
[2022-04-08] MEDS: Empagliflozin 10 MG TAB PO SCH (09:06)
[2022-04-08] MEDS: Aspirin 81 mg Enteric Coated Tablet PO SCH (09:06)
[2022-04-08] MEDS: Azithromycin 500 MG in Sodium Chloride 0.9% 250 ML 250 ML IVPB SCH (09:06)
[2022-04-08] MEDS: Dexamethasone 4 mg/ml Vial SLOW IVP SCH (09:06)
[2022-04-08] MEDS: Clopidogrel Bisulfate 75 MG TAB PO SCH (09:06)
[2022-04-08] MEDS: NIFEdipine XL 60 MG TAB PO SCH ×2 (09:07→20:24)
[2022-04-08] MEDS: Metoprolol Tartrate 50 MG TAB PO SCH ×2 (09:07→20:25)
[2022-04-08] MEDS ORDERED: Fluconazole 100 MG TAB PO SCH (10:30)
[2022-04-08] MEDS: Insulin Glargine 30 UNITS/0.3 ML VIAL SC SCH (20:25)
[2022-04-08] MEDS: Atorvastatin Calcium 40 MG TAB PO SCH (20:25)
[2022-04-09] MEDS: Albuterol 200 PUFF (6.7GM INHALER) INH SCH ×10 (01:56→20:26)
[2022-04-09] MEDS: Furosemide 20 MG/2 ML VIAL SLOW IVP SCH ×2 (04:52→18:28)
[2022-04-09] MEDS: cefTRIAXone\\ROCEPHIN 2 GM in Sodium Chloride 0.9% 100 ML IVPB SCH (04:52)
[2022-04-09 06:55] LABS: Anion Gap 16 mmol/L (10-20); BUN (Urea Nitrogen) 53 mg/dL (9.8-20.1); Calc. Creatinine Clearance 49 mL/min (70-130); Carbon Dioxide 27 mmol/L (23-31); Chloride 107 mmol/L (98-107); Potassium 3.6 mmol/L (3.5-5.1); Sodium 146 mmol/L (136-145)
[2022-04-09 06:56] LABS: Calcium 9.4 mg/dL (7.8-10.44); Estimated GFR 42; Glucose 199 mg/dL (83-110)
[2022-04-09] MEDS: HumaLOG 300 UNITS/3 ML VIAL SC PRN ×4 (07:22→20:26)
[2022-04-09 08:25] LABS: Hemoglobin 11.8 g/dL (12.0-16.0); Mean Corpuscular HGB CONC 32.1 g/dL (32.0-36.0); Mean Corpuscular Hemoglobin 29.3 pg (27.0-31.0); Mean Corpuscular Volume 91.3 fl (78.0-98.0); Mean Platelet Volume 7.9 fL (7.4-10.4); Platelet Count 423 10x3/uL (130-400); RBC Distribution Width 13.6 % (11.5-14.5); Red Blood Cell (RBC) Count 4.01 mill/uL (4.20-5.40); White Blood Cell (WBC) Count 20.6 10x3/uL (4.8-10.8)
[2022-04-09] MEDS: Azithromycin 500 MG in Sodium Chloride 0.9% 250 ML 250 ML IVPB SCH (09:13)
[2022-04-09] MEDS: Empagliflozin 10 MG TAB PO SCH (09:15)
[2022-04-09] MEDS: Clopidogrel Bisulfate 75 MG TAB PO SCH (09:15)
[2022-04-09] MEDS: Dexamethasone 4 mg/ml Vial SLOW IVP SCH (09:15)
[2022-04-09] MEDS: Aspirin 81 mg Enteric Coated Tablet PO SCH (09:15)
[2022-04-09] MEDS: Fluconazole 100 MG TAB PO SCH (09:16)
[2022-04-09] MEDS: NIFEdipine XL 60 MG TAB PO SCH ×2 (09:16→20:25)
[2022-04-09] MEDS: Metoprolol Tartrate 50 MG TAB PO SCH ×2 (09:16→20:25)
[2022-04-09 11:37] LABS: Band 3 % (5-11); Lymphocytes 20 % (21-51); MDiff Complete? YES; Monocytes 9 % (0-10); Neutrophil 68 % (42-75); Platelet Morphology Comment Appears Increased; RBC Morphology Normal
[2022-04-09] MEDS: Atorvastatin Calcium 40 MG TAB PO SCH (20:25)
[2022-04-09] MEDS: Insulin Glargine 30 UNITS/0.3 ML VIAL SC SCH (20:25)
[2022-04-10 04:21] LABS: Anion Gap 14 mmol/L (10-20); BUN (Urea Nitrogen) 50 mg/dL (9.8-20.1); Calc. Creatinine Clearance 54 mL/min (70-130); Calcium 9.1 mg/dL (7.8-10.44); Carbon Dioxide 27 mmol/L (23-31); Chloride 106 mmol/L (98-107); Estimated GFR 47; Glucose 207 mg/dL (83-110); Sodium 143 mmol/L (136-145)
[2022-04-10 04:36] LABS: Hemoglobin 10.2 g/dL (12.0-16.0); Mean Corpuscular HGB CONC 32.5 g/dL (32.0-36.0); Mean Corpuscular Hemoglobin 29.3 pg (27.0-31.0); Mean Corpuscular Volume 90.3 fl (78.0-98.0); Platelet Count 394 10x3/uL (130-400); RBC Distribution Width 13.4 % (11.5-14.5); Red Blood Cell (RBC) Count 3.49 mill/uL (4.20-5.40); White Blood Cell (WBC) Count 19.8 10x3/uL (4.8-10.8)
[2022-04-10 05:08] LABS: Band 4 % (5-11); Eosinophils 1 % (0-10); Lymphocytes 22 % (21-51); MDiff Complete? YES; Monocytes 2 % (0-10); Myelocyte 2 % (0-0); Neutrophil 69 % (42-75)
[2022-04-10] MEDS: Albuterol 200 PUFF (6.7GM INHALER) INH SCH ×11 (06:29→20:04)
[2022-04-10] MEDS: cefTRIAXone\\ROCEPHIN 2 GM in Sodium Chloride 0.9% 100 ML IVPB SCH (06:30)
[2022-04-10] MEDS: NIFEdipine XL 60 MG TAB PO SCH ×2 (09:55→20:03)
[2022-04-10] MEDS: Clopidogrel Bisulfate 75 MG TAB PO SCH (09:55)
[2022-04-10] MEDS: Metoprolol Tartrate 50 MG TAB PO SCH ×2 (09:55→20:03)
[2022-04-10] MEDS: Empagliflozin 10 MG TAB PO SCH (09:56)
[2022-04-10] MEDS: Dexamethasone 4 mg/ml Vial SLOW IVP SCH ×2 (09:56→10:04)
[2022-04-10] MEDS: Azithromycin 500 MG in Sodium Chloride 0.9% 250 ML 250 ML IVPB SCH (09:56)
[2022-04-10] MEDS: Fluconazole 100 MG TAB PO SCH (09:56)
[2022-04-10] MEDS: Aspirin 81 mg Enteric Coated Tablet PO SCH (09:56)
[2022-04-10] MEDS ORDERED: Dexamethasone 4 mg/ml Vial SLOW IVP SCH ×2 (09:57→10:00)
[2022-04-10] MEDS: HumaLOG 300 UNITS/3 ML VIAL SC PRN ×3 (10:45→20:08)
[2022-04-10] MEDS ORDERED: Acetaminophen 500 MG TAB PO PRN (15:23)
[2022-04-10] MEDS ORDERED: Ondansetron PF 4 MG/2 ML Vial IVP PRN (15:24)
[2022-04-10] MEDS: Atorvastatin Calcium 40 MG TAB PO SCH (20:03)
[2022-04-10] MEDS: Insulin Glargine 30 UNITS/0.3 ML VIAL SC SCH (20:04)
[2022-04-11 04:24] LABS: Hemoglobin 9.9 g/dL (12.0-16.0); Mean Corpuscular HGB CONC 32.2 g/dL (32.0-36.0); Mean Corpuscular Volume 90.2 fl (78.0-98.0); Mean Platelet Volume 7.8 fL (7.4-10.4); Platelet Count 395 10x3/uL (130-400); RBC Distribution Width 13.2 % (11.5-14.5); White Blood Cell (WBC) Count 20.7 10x3/uL (4.8-10.8)
[2022-04-11 04:41] LABS: Anion Gap 14 mmol/L (10-20); BUN (Urea Nitrogen) 43 mg/dL (9.8-20.1); Calc. Creatinine Clearance 66 mL/min (70-130); Calcium 8.8 mg/dL (7.8-10.44); Carbon Dioxide 25 mmol/L (23-31); Chloride 106 mmol/L (98-107); Estimated GFR 60; Glucose 183 mg/dL (83-110); Sodium 141 mmol/L (136-145)
[2022-04-11 05:26] LABS: Eosinophils 2 % (0-10); Lymphocytes 18 % (21-51); MDiff Complete? YES; Metamyelocyte 2 % (0-0); Monocytes 5 % (0-10); Neutrophil 73 % (42-75); Platelet Morphology Comment Appears Adequate; Polychromasia SLIGHT = 2-3 cells (100X) (0-2/hpf)
[2022-04-11] MEDS: Albuterol 200 PUFF (6.7GM INHALER) INH SCH ×5 (05:29→19:16)
[2022-04-11] MEDS: cefTRIAXone\\ROCEPHIN 2 GM in Sodium Chloride 0.9% 100 ML IVPB SCH (05:33)
[2022-04-11] MEDS ORDERED: Dexamethasone 4 mg/ml Vial SLOW IVP SCH (09:00)
[2022-04-11] MEDS: Clopidogrel Bisulfate 75 MG TAB PO SCH (10:30)
[2022-04-11] MEDS: Metoprolol Tartrate 50 MG TAB PO SCH ×2 (10:30→20:51)
[2022-04-11] MEDS: Aspirin 81 mg Enteric Coated Tablet PO SCH (10:30)
[2022-04-11] MEDS: Fluconazole 100 MG TAB PO SCH (10:31)
[2022-04-11] MEDS: Empagliflozin 10 MG TAB PO SCH (10:31)
[2022-04-11] MEDS: NIFEdipine XL 60 MG TAB PO SCH ×2 (10:31→20:51)
[2022-04-11] MEDS: Azithromycin 500 MG in Sodium Chloride 0.9% 250 ML 250 ML IVPB SCH (10:31)
[2022-04-11] MEDS: HumaLOG 300 UNITS/3 ML VIAL SC PRN ×3 (10:45→20:50)
[2022-04-11] MEDS: Atorvastatin Calcium 40 MG TAB PO SCH (20:50)
[2022-04-11] MEDS: Insulin Glargine 30 UNITS/0.3 ML VIAL SC SCH (20:50)
[2022-04-12] MEDS: cefTRIAXone\\ROCEPHIN 2 GM in Sodium Chloride 0.9% 100 ML IVPB SCH (05:39)
[2022-04-12] MEDS: HumaLOG 300 UNITS/3 ML VIAL SC PRN ×2 (05:51→17:28)
[2022-04-12 05:52] LABS: #Lymphocytes 3.4 thou/uL (1.20-3.40); #Monocytes 1.4 thou/uL (0.11-0.59); #Neutrophils 11.7 thou/uL (1.40-6.50); %Basophils 0.2 % (0.0-1.0); %Eosinophils 5.6 % (0.0-10.0); %Lymphocytes 19.5 % (21.0-51.0); %Neutrophils 66.6 % (42.0-75.0); Hemoglobin 8.9 g/dL (12.0-16.0); Mean Corpuscular Hemoglobin 29.2 pg (27.0-31.0); Mean Corpuscular Volume 91.3 fl (78.0-98.0); Mean Platelet Volume 8.1 fL (7.4-10.4); Platelet Count 349 10x3/uL (130-400); RBC Distribution Width 13.5 % (11.5-14.5); Red Blood Cell (RBC) Count 3.05 mill/uL (4.20-5.40); White Blood Cell (WBC) Count 17.5 10x3/uL (4.8-10.8)
[2022-04-12 05:58] LABS: Anion Gap 12 mmol/L (10-20); BUN (Urea Nitrogen) 38 mg/dL (9.8-20.1); Calc. Creatinine Clearance 66 mL/min (70-130); Calcium 8.5 mg/dL (7.8-10.44); Carbon Dioxide 25 mmol/L (23-31); Chloride 107 mmol/L (98-107); Estimated GFR 60; Glucose 176 mg/dL (83-110); Potassium 3.9 mmol/L (3.5-5.1); Sodium 140 mmol/L (136-145)
[2022-04-12] MEDS: Albuterol 200 PUFF (6.7GM INHALER) INH SCH ×6 (07:27→22:49)
[2022-04-12] MEDS: Azithromycin 500 MG in Sodium Chloride 0.9% 250 ML 250 ML IVPB SCH (09:50)
[2022-04-12] MEDS: Furosemide 40 MG/4 ML VIAL SLOW IVP SCH (09:51)
[2022-04-12] MEDS: Metoprolol Tartrate 50 MG TAB PO SCH ×2 (09:54→20:32)
[2022-04-12] MEDS: NIFEdipine XL 60 MG TAB PO SCH ×2 (09:54→20:32)
[2022-04-12] MEDS: Empagliflozin 10 MG TAB PO SCH (09:54)
[2022-04-12] MEDS: Aspirin 81 mg Enteric Coated Tablet PO SCH (09:54)
[2022-04-12] MEDS: Fluconazole 100 MG TAB PO SCH (09:54)
[2022-04-12] MEDS: Clopidogrel Bisulfate 75 MG TAB PO SCH (09:55)
[2022-04-12] MEDS: Atorvastatin Calcium 40 MG TAB PO SCH (20:32)
[2022-04-12] MEDS: Insulin Glargine 30 UNITS/0.3 ML VIAL SC SCH (20:32)
[2022-04-13] MEDS: Albuterol 200 PUFF (6.7GM INHALER) INH SCH ×8 (00:31→19:08)
[2022-04-13 05:14] LABS: Anion Gap 11 mmol/L (10-20); BUN (Urea Nitrogen) 34 mg/dL (9.8-20.1); Calc. Creatinine Clearance 59 mL/min (70-130); Calcium 8.6 mg/dL (7.8-10.44); Carbon Dioxide 25 mmol/L (23-31); Chloride 107 mmol/L (98-107); Estimated GFR 52; Glucose 177 mg/dL (83-110); Potassium 3.8 mmol/L (3.5-5.1); Sodium 139 mmol/L (136-145)
[2022-04-13 05:23] LABS: Band 2 % (5-11); Eosinophils 8 % (0-10); Hemoglobin 9.5 g/dL (12.0-16.0); Hypochromia SLIGHT = 6-15 cells (100X) (0-5/hpf); Lymphocytes 13 % (21-51); MDiff Complete? YES; Mean Corpuscular Hemoglobin 29.8 pg (27.0-31.0); Mean Corpuscular Volume 90.5 fl (78.0-98.0); Mean Platelet Volume 8.2 fL (7.4-10.4); Monocytes 14 % (0-10); Neutrophil 62 % (42-75); Platelet Count 319 10x3/uL (130-400); Platelet Morphology Comment Appears Adequate; RBC Distribution Width 13.9 % (11.5-14.5); Reactive Lymphocytes 1 % (0-10); Red Blood Cell (RBC) Count 3.19 mill/uL (4.20-5.40)
[2022-04-13] MEDS: HumaLOG 300 UNITS/3 ML VIAL SC PRN ×2 (06:07→19:22)
[2022-04-13] MEDS: Azithromycin 500 MG in Sodium Chloride 0.9% 250 ML 250 ML IVPB SCH (10:32)
[2022-04-13] MEDS: Metoprolol Tartrate 50 MG TAB PO SCH (10:33)
[2022-04-13] MEDS: NIFEdipine XL 60 MG TAB PO SCH (10:33)
[2022-04-13] MEDS: Aspirin 81 mg Enteric Coated Tablet PO SCH (10:33)
[2022-04-13] MEDS: Clopidogrel Bisulfate 75 MG TAB PO SCH (10:34)
[2022-04-13] MEDS: Empagliflozin 10 MG TAB PO SCH (10:34)
[2022-04-13] MEDS: Fluconazole 100 MG TAB PO SCH (10:35)
[2022-04-13] MEDS: Furosemide 40 MG/4 ML VIAL SLOW IVP SCH (10:56)
[2022-04-13 12:11] VITALS: BP 140/89
[2022-04-13 19:26] VITALS: TEMP 98.4
[2022-04-14] MEDS ORDERED: Furosemide 40 MG TAB PO SCH (07:30)
== END 2022-04-13 20:30 | DRG 871 ==
LOC: ERS 16:44 → 2NO 18:48 → IMCU/EMU 04-07 06:00
PROVIDERS: ADMIT Family Medicine; ATTEND Hospitalist
PROC: 3E03329 Introduction of Other Anti-infective into Peripheral Vein, Percutaneous Approach (ICD-10-PCS; principal; 2022-04-05)
PROC: 8E0ZXY6 Isolation (ICD-10-PCS; 2022-04-05)
DX: A41.89 Other specified sepsis (principal); I21.4 Non-ST elevation (NSTEMI) myocardial infarction; J12.82 Pneumonia due to coronavirus disease 2019; J96.01 Acute respiratory failure with hypoxia; U07.1 COVID-19; I50.23 Acute on chronic systolic (congestive) heart failure; N17.9 Acute kidney failure, unspecified; N30.00 Acute cystitis without hematuria; Z66 Do not resuscitate; I25.10 Atherosclerotic heart disease of native coronary artery without angina pectoris; E11.9 Type 2 diabetes mellitus without complications; I11.0 Hypertensive heart disease with heart failure; D64.9 Anemia, unspecified; Z91.048 Other nonmedicinal substance allergy status; Z79.82 Long term (current) use of aspirin; Z79.890 Hormone replacement therapy; Z79.4 Long term (current) use of insulin; Z79.899 Other long term (current) drug therapy; Z85.038 Personal history of other malignant neoplasm of large intestine; I25.2 Old myocardial infarction
CPT/HCPCS: 36415; 36416; 71045; 71250; 80048; 80053; 82553; 83605; 83615; 83735; 83880; 84145; 84484; 85025; 86140; 87086; 93005; 93306; 93798; 94660; 97139; J0456; J0696; J1100; J1650; J1815; J1940; J2405; J3490; J7050